=== PATIENT | male | born 1990 | race African-American/Black ===

== ENCOUNTER 2023-07-13 14:03 | Emergency (ER) | payer MEDICAID, OTHER ==
[~2023-07-13] VITALS: Ht 177.8 cm; Wt 79.9 kg
[2023-07-13 14:52] VITALS: BP 120/55; PULSE 60; RESP 18; TEMP 98.7; O2SAT 95
[2023-07-13] MEDS ORDERED: IBUP-1454 PO (15:27)
== END 2023-07-13 15:32 | disposition home or self-care (01) ==
LOC: ER 14:03
DX: R51.9 Headache, unspecified (principal); V43.52XA Car driver injured in collision with other type car in traffic accident, initial encounter; Y93.89 Activity, other specified; Y92.488 Other paved roadways as the place of occurrence of the external cause; Y99.8 Other external cause status
CPT/HCPCS: 70450